=== PATIENT | male | born 1945 | race Asian ===

== ENCOUNTER 2018-08-12 10:10 | Inpatient (IN) | payer SELFPAY ==
[~2018-08-12] VITALS: Ht 160 cm; Wt 66.2 kg
[2018-08-12] VITALS (23 sets, daily range): BP systolic 32–127; BP diastolic 22–66
--- NOTE | 2018-08-12 08:25 | NUR ---
BLOOD SUGAR 48, WILL FOLLOW THE PROTOCOL
--- NOTE | 2018-08-12 10:10 | NUR ---
PATIENT BIBA TO BED 4 AT THIS TIME.
--- NOTE | 2018-08-12 10:22 | NUR ---
DR. FOREMAN AT BEDSIDE EVALUATING PATIENT.
--- NOTE | 2018-08-12 10:29 | NUR ---
PATIENT MOVED TO BED 10 AT THIS TIME.
[2018-08-12] MEDS ORDERED: DEXTROSE 50% 50 ML SYR IVP ONE ×5 (10:40→15:45)
--- NOTE | 2018-08-12 10:41 | NUR ---
lab at bedside
--- NOTE | 2018-08-12 10:55 | NUR ---
72 male biba from home c/o sob, generalized weakness. family states it worsened this am. pt on a non-rebreather 15 l. 02 at 100%. PT NON RESPONSIVE, SEVERE WEAKNESS. pmh- neck cancer
[2018-08-12 10:57] LABS: HEMATOCRIT 32.5 % (36-52); HEMOGLOBIN 9.6 g/dL (12.0-18.0); MEAN CORPUSCULAR HEMOGLOBIN 18 pg (27-31); MEAN CORPUSCULAR HGB CONC 30 g/dL (33-37); MEAN CORPUSCULAR VOLUME 60.6 fL (80-94); PLATELET COUNT (AUTO) 202 K/uL (140-450); RED BLOOD CELL COUNT(AUTO) 5.36 MIL/uL (4.20-6.10); RED CELL DISTRIBUTION WIDTH 23.2 % (11.6-13.7)
[2018-08-12 11:14] LABS: PROTHROMBIN TIME 13.2 secs (10.8-13.4)
--- NOTE | 2018-08-12 11:15 | NUR ---
ABG DONE; HYPOVOLEMIC STATUS PUNCTURE ATTEMPT X 4
[2018-08-12 11:23] LABS: ALBUMIN 1.5 g/dL (3.4-5.0); ANION GAP 13.3 (8-16); ASPARTATE AMINOTRANSFERASE 280 U/L (15-37); CARBON DIOXIDE 29.7 mmol/L (21-32); CHLORIDE 107 mmol/L (98-107); CREATININE 2.8 mg/dL (0.7-1.3); LIPASE 206 U/L (73-393); MAGNESIUM 2.4 mg/dL (1.8-2.4); PHOSPHORUS 8.1 mg/dL (2.5-4.9); SODIUM SERUM 144 mmol/L (136-145); TOTAL BILIRUBIN 0.5 mg/dL (0.0-1.0)
--- NOTE | 2018-08-12 11:23 | NUR ---
REVIEWED ABG SAMPLE REPORT WITH DR. EDWAR NAILS/ NO NEW ORDERS
[2018-08-12 11:28] LABS: GLUCOSE 25 mg/dL (74-106); UREA NITROGEN, BLOOD 109 mg/dL (7-18)
[2018-08-12 11:33] LABS: LYMPHOCYTES % (MANUAL) 11 % (20-46); MONOCYTES % (MANUAL) 4 % (5-12)
[2018-08-12] MEDS ORDERED: INSULIN REGULAR, HUMAN 100 UNIT/ML VIAL IVP ONE (11:45)
[2018-08-12] MEDS ORDERED: CALCIUM GLUCONATE 10% 1000 MG/10 ML VIAL IVP ONE (11:45)
[2018-08-12] MEDS ORDERED: PATIROMER CALCIUM SORBITEX 8.4 GM PKT PO ONE ×2 (11:45→17:35)
--- NOTE | 2018-08-12 11:46 | NUR ---
PT GOING TO CT AT THIS TIME
[2018-08-12 12:27] LABS: APPEARANCE,URINE HAZY (CLEAR); BILIRUBIN,URINE 1+ (NEGATIVE); BLOOD, URINE NEGATIVE (NEGATIVE); COLOR,URINE YELLOW (YELLOW); LEUKOCYTE ESTERASE ,URINE TRACE (NEGATIVE); NITRITE, URINE NEGATIVE (NEGATIVE); UGLUCOSE NEGATIVE (NEGATIVE)
[2018-08-12 12:36] LABS: HYALINE CASTS, URINE 0-2 /LPF (None Seen); RBC,URINE 0 /HPF (0-5); URINE AMORPHOUS URATE 1+ /HPF (None Seen); WBC,URINE 0-5 /HPF (0-5)
--- NOTE | 2018-08-12 13:06 | NUR ---
PT RESTING IN BED, RESIDENT AT BEDSIDE ASSESSING PT. BS 54, ER MD NOTIFIED. VSS.
[2018-08-12] MEDS ORDERED: DEXT 5% / NACL 0.45% 1,000 ML IV SCH (13:37)
[2018-08-12] MEDS ORDERED: LORazepam 2 MG/ML VIAL IM/IVP PRN (13:40)
[2018-08-12] MEDS ORDERED: ONDANSETRON 4 MG/2 ML VIAL IM/IVP PRN (13:40)
[2018-08-12] MEDS ORDERED: DOCUSATE SODIUM 100 MG GELCAP PO PRN (13:40)
[2018-08-12] MEDS ORDERED: MORPHINE SULFATE 2 MG/ML SYR IVP PRN (13:40)
[2018-08-12] MEDS ORDERED: LIDOCAINE/EPI 1% 1:100000 20 ML VIAL INJ ONE (14:29)
[2018-08-12 14:56] LABS: MAGNESIUM 2.5 mg/dL (1.8-2.4); PHOSPHORUS 8.2 mg/dL (2.5-4.9); THYROID STIMULATING HORMONE 6.23 uIU/mL (0.34-3.74)
[2018-08-12] MEDS: DEXTROSE 10% 1,000 ML IV SCH ×2 (15:15→20:32)
[2018-08-12] MEDS ORDERED: ATEN50TA8 PO (15:20)
[2018-08-12] MEDS ORDERED: ALBUTEROL SULFATE/IPRATROPIU 3 ML SOL IH PRN (15:20)
[2018-08-12] MEDS ORDERED: CALCIUM ACETATE 667 MG TAB PO SCH (15:30)
--- NOTE | 2018-08-12 15:30 | NUR ---
PT IS BEING ADMITTED TO ICU 3 VIA GURNEY WITH 2 ER STAFF. WILL ADMIT THE PT.
[2018-08-12] MEDS ORDERED: SODIUM POLYSTYRENE 15 GM/60 ML UDBTL PO ONE (15:40)
[2018-08-12] MEDS: PIPER/TAZO 2.25GM/D5W PREMIX 50 ML IV SCH ×2 (15:40→20:33)
--- NOTE | 2018-08-12 15:40 | NUR ---
Patient noted to have existing wounds upon arrival to ER. Photos taken of wound and placed in chart. Wound covered with dressing. Physician informed.
--- NOTE | 2018-08-12 15:44 | NUR ---
Patient will be admitted to care of [facility]. Admited to ICU 3 VIA CARLINE W/ [facility]. Belongings list completed.
[2018-08-12] MEDS ORDERED: NOREPINEPHRINE 4 MG in DEXTROSE 5% 250 ML IV PRN (16:05)
[2018-08-12 16:26] LABS: ANION GAP 15.3 (8-16); CARBON DIOXIDE 25.5 mmol/L (21-32); CHLORIDE 108 mmol/L (98-107); GLUCOSE 90 mg/dL (74-106); POTASSIUM 5.8 mmol/L (3.5-5.1); SODIUM SERUM 143 mmol/L (136-145)
--- NOTE | 2018-08-12 16:30 | NUR ---
BODY ASSESSMENT DONE AND PICTURES TAKEN FOR WOUNDS. PT A&O X4. RIGHT SIDE LUNG DIMINISHED WITH CRACKLES AND RIGHT LUNG CLEAR. ABDOMINAL BOWEL SOUND ACTIVE. GENERALIZED EDEMA NOTED AND RIGHT UPPER SIDE HAS PITTING EDEMA OF +3 AND FLUID SIPPING OUT OF SKIN FROM BILATERAL UPPER EXTREMITIES. BP AND HR BEING LOW AND DR. LUNDBERG AT BED SIDE AND IS AWARE. CHECK TUBE ON THE RIGHT LATERAL UPPER CHEST WITH 1000ML OUTPUT. LEFT AC 20G PERIPHERAL LINE PATENT AND ASYMPTOMATIC.
[2018-08-12 16:32] LABS: BARBITURATE, URINE NEG. ng/ml (NEG <=200); BENZODIAZEPINE, URINE NEG. ng/mL (NEG <=200); CANNABINOID, URINE NEG. ng/mL (NEG <=50); COCAINE, URINE NEG. ng/mL (NEG <=300); OPIATE, URINE NEG. ng/mL (NEG <=2000); PHENCYCLIDINE SCREEN,URINE NEG. ng/mL (NEG <=25)
[2018-08-12 16:37] LABS: UREA NITROGEN, BLOOD 112 mg/dL (7-18)
--- NOTE | 2018-08-12 16:48 | NUR ---
CENTRAL LINE INSERTION PROCEDURE BEING PERFORMED BY DR. LUNDBERG. CONSENT SIGNED. THE PROCEDURE EXPLAINED BY DR. LUNDBERG AND QUESTIONS ANSWERED. TIME OUT CALLED. DR. LUNDBERG, TABLEAU ANALYST AND RN AT BED SIDE.
[2018-08-12] MEDS: BLOOD GLUCOSE MONITORING 1 DEV DEV FS SCH ×2 (16:57→20:34)
[2018-08-12] MEDS ORDERED: Z-GUARD PASTE TP PRN (17:15)
--- NOTE | 2018-08-12 17:45 | NUR ---
CHEST XRAY IN. DR. LUNDBERG AT BED SIDE.
--- NOTE | 2018-08-12 18:10 | NUR ---
DR. LUNDBERG ORDERED TO ADMINISTER IV BOLUS DUE TO LOW BP.
--- NOTE | 2018-08-12 18:15 | NUR ---
DR. LUNDBERG AT BED SIDE ADJUSTING THE CENTRAL LINE TO LEFT IJ.
--- NOTE | 2018-08-12 18:28 | NUR ---
DR. LUNDBERG ORDERED NOT TO USE THE BROWN PORT FROM THE CENTRAL LINE SINCE IT'S CLOGGED.
--- NOTE | 2018-08-12 19:05 | NUR ---
DR. AUGUSTIN MADE AWARE OF THE IV SITE TO THE LEFT AC IS PULLED OUT BY PT AND THE CENTRAL PLACEMENT IS PENDING. HE IS AWARE OF PT WAS RECEIVING BOLUS IV DUE TO LOW BP AND ONLY RECEIVED ABOUT 600ML. DR. AUGUSTIN IS AWARE OF THE LOW BP AND LOW HR.
--- NOTE | 2018-08-12 19:10 | NUR ---
chest xray at bed side.
--- NOTE | 2018-08-12 19:28 | NUR ---
REPORT GIVEN TO [facility] AT BED SIDE. PT IS AWAKE AND RESPONSIVE. CONTINUES TO HAVE LOW BP AND HR.
--- NOTE | 2018-08-12 19:30 | NUR ---
BED SIDE SHIFT REPORT RECEIVED FROM XAVI PHILLIPS. PT AWAKE AND RESPONSIVE, LETHARGIC BUT ABLE TO FOLLOW COMMANDS, CONFUSED. GCS 14. ANYA AND B/P ON LOW SIDE, RESIDENT DOCTOR IS MADE AWARE. US AT THE BEDSIDE. BREATHING NORMALLY ON NC 4L, CHEST TUBE INTACT AND DRAINING SEROSANGUINEOUS DRAINAGE. ABDOMEN DISTENDED, NON TENDER TO TOUCH. PATE CATHETER INTACT AND NO URINE OUT PUT. MULTIPLE SKIN WOUNDS. WILL CONTINUE TO MONITOR CLOSELY.
--- NOTE | 2018-08-12 20:25 | NUR ---
D50% 1 AMP IVP GIVEN, RESIDENT DOCTOR MADE AWARE.
[2018-08-12] MEDS: DEXTROSE 50% 50 ML SYR IVP PRN (20:30)
--- NOTE | 2018-08-12 20:45 | NUR ---
BLOOD SUGAR 158, IVF CHANGED TO D10 PER RESIDENT DOCTOR'S ORDER.
--- NOTE | 2018-08-12 21:13 | NUR ---
PT COMFORTABLE, CLEANED AND ASLEEP, B/P ON LOW SIDE, WILL START DOPAMINE SOON PER RESIDENT DOCTOR'S ORDER.
[2018-08-12] MEDS: ALBUTEROL SULFATE/IPRATROPIU 3 ML SOL IH SCH (21:18)
[2018-08-12] MEDS ORDERED: SODIUM FERRIC GLUCONATE 125 MG in NACL 0.9% 100 ML IV SCH (21:30)
[2018-08-12] MEDS: DOPamine 400 MG/D5W PREMIX 250 ML IV SCH ×2 (21:37→22:33)
[2018-08-12] MEDS ORDERED: SODIUM FERRIC GLUCONATE 12.5 MG/ML AMP IV ONE (23:02)
[2018-08-13] VITALS (42 sets, daily range): BP systolic 45–138; BP diastolic 20–75
[2018-08-13] MEDS ORDERED: Z-GUARD PASTE TP SCH (01:00)
[2018-08-13] MEDS: PIPER/TAZO 2.25GM/D5W PREMIX 50 ML IV SCH (03:43)
[2018-08-13 05:30] LABS: MAGNESIUM 2.4 mg/dL (1.8-2.4); PHOSPHORUS 7.8 mg/dL (2.5-4.9)
[2018-08-13 05:34] LABS: CHOL/HDL RATIO 1.4 (1-4.5)
[2018-08-13 06:14] LABS: BASOPHILS % (AUTO) 0.2 % (0.0-2.0); EOSINOPHILS % (AUTO) 0.2 % (0.0-4.0); HEMOGLOBIN 9.9 g/dL (12.0-18.0); LYMPHOCYTES # (AUTO) 0.4 K/uL (2.0-11.5); LYMPHOCYTES % (AUTO) 6.2 % (20.5-51.1); MEAN CORPUSCULAR HEMOGLOBIN 18 pg (27-31); MEAN CORPUSCULAR HGB CONC 29 g/dL (33-37); MEAN CORPUSCULAR VOLUME 62.3 fL (80-94); MONOCYTES # (AUTO) 0.2 K/uL (0.8-1.0); MONOCYTES % (AUTO) 3.6 % (1.7-9.3); NEUTROPHILS # (AUTO) 5.1 K/uL (1.8-7.7); NEUTROPHILS % (AUTO) 89.8 % (42.2-75.2); PLATELET COUNT (AUTO) 207 K/uL (140-450); RED BLOOD CELL COUNT(AUTO) 5.47 MIL/uL (4.20-6.10); RED CELL DISTRIBUTION WIDTH 23.7 % (11.6-13.7); WHITE BLOOD COUNT (AUTO) 5.7 K/uL (4.8-10.8)
[2018-08-13] MEDS ORDERED: ACETAMINOPHEN 650 MG SUPP RC PRN (07:00)
[2018-08-13] MEDS ORDERED: LORazepam 2 MG/ML VIAL IVP PRN (07:00)
--- NOTE | 2018-08-13 07:20 | NUR ---
BEDSIDE REPORT GIVEN TO ANA HURLEY.
--- NOTE | 2018-08-13 07:21 | NUR ---
OBTAINED REPORT FROM BABY NURSE NURSE AT BEDSIDE, PT IS AAOX3, ABLE TO FOLLOW COMMANDS AND MAKE NEEDS KNOWN, DENIES PAIN, VSS, NO S/S OF DISTRESS, CLEAR LUNG SOUND TO LEFT SIDE, DIMINISHED LUNG SOUNDS TO RIGHT SIDE, CHEST TUBE IN PLACE TO RIGHT CHEST, ON O2 AT 2L VIA NC, O2 AT 96%, DENIES CHEST PAIN, GENERALIZED PITTING EDEMA TO ALL EXTREMITIES NOTED, SOFT ABDOMEN WITH HYPOACTIVE BOWEL SOUNDS, PATE CATHETER IN PLACE WITH SEDIMENT YELLOW URINE VIA GRAVITY, SKIN IS COOL TO TOUCH, NON-INTACT, MULTIPLE PRESSURE ULCERS (SEE WOUND ASSESSMENT), CENTRAL LINE TO LIJ, TLC, PATENT, RUNNING DOPAMINE DRIP AT 10 MG/HR, AND D10 AT 60ML/HR. HOB ELEVATED TO 30 DEGREES, SAFETY MEASURE CHECKED, POSITION CHANGED FOR COMFORT, CALL LIGHT WITHIN REACH, WILL CONTINUE TO MONITOR.
--- NOTE | 2018-08-13 07:30 | NUR ---
ACCU CHECK WITH 42 MG/DL NOTED, D50 GIVEN ORDERED, WILL CONTINUE TO MONITOR.
[2018-08-13] MEDS: ALBUTEROL SULFATE/IPRATROPIU 3 ML SOL IH SCH (07:33)
[2018-08-13] MEDS: BLOOD GLUCOSE MONITORING 1 DEV DEV FS SCH (07:45)
[2018-08-13] MEDS: DEXTROSE 50% 50 ML SYR IVP PRN (07:46)
[2018-08-13] MEDS: MORPHINE SULFATE 50 MG in NACL 0.9% 45 ML IV PRN ×2 (08:22→11:45)
--- NOTE | 2018-08-13 08:22 | NUR ---
MORPHINE DRIP STARTED FOR COMFORT CARE, EXPLAINED MEDICATION INDICATION AND SIDE EFFECTS TO PT, PT VERBALIZED UNDERSTANDING.
--- NOTE | 2018-08-13 08:38 | NUR ---
ALL MEDICATION STOPPED ORDERED PER DR. SARKAR, ONLY KEEP MORPHINE DRIP FOR COMFORT CARE.
--- NOTE | 2018-08-13 08:40 | NUR ---
PT'S FRIENDS CAME IN TO SEE PT AT BEDSIDE, DR. SARKAR AND DR. LARA AT BEDSIDE EXPLAINED PT'S CONDITION AND PT'S DECISION.
--- NOTE | 2018-08-13 08:41 | NUR ---
PATIENT HAS BEEN SCREENED AND CATEGORIZED HIGH NUTRITION RISK. PATIENT WILL BE SEEN WITHIN 1-2 DAYS OF ADMISSION. 08/13/18-08/14/[address]
[2018-08-13] MEDS ORDERED: FUROSEMIDE 20 MG/2 ML VIAL IVP SCH (09:00)
[2018-08-13 09:03] LABS: ANION GAP 15.3 (8-16); CARBON DIOXIDE 26.3 mmol/L (21-32); CHLORIDE 104 mmol/L (98-107); CREATININE 2.9 mg/dL (0.7-1.3); POTASSIUM 5.6 mmol/L (3.5-5.1); SODIUM SERUM 140 mmol/L (136-145)
[2018-08-13 09:06] LABS: GLUCOSE 47 mg/dL (74-106); UREA NITROGEN, BLOOD 114 mg/dL (7-18)
--- NOTE | 2018-08-13 09:45 | NUR ---
DR. CORBIN CAME IN TO SEE PT AT BEDSIDE, UPDATED PT'S CONDITION, WILL FOLLOW UP WITH NEW ORDERS.
--- NOTE | 2018-08-13 10:00 | NUR ---
PT C/O PAIN AT PATE CATHETER AREA, REQUESTED TO REMOVE THE TUBE, DR. CORBIN MADE AWARE, OK TO D/C PATE CATHETER FOR COMFORT. Addendum: 08/13/18 at 1003 by John Scott RN PATE CATHETER REMOVED ORDERED.
--- NOTE | 2018-08-13 10:40 | NUR ---
SPOKE TO , WOUND CONSULT CANCELLED. PT IS IN COMFORT CARE.
--- NOTE | 2018-08-13 12:00 | NUR ---
PT IS ASLEEP IN BED, NO S/S OF DISTRESS, POSITION CHANGED FOR OFF LOAD PRESSURE.
[2018-08-13 12:14] LABS: HEPATITIS A ANTIBODY IGM Negative (Negative); HEPATITIS B CORE AB TOTAL Negative (Negative); HEPATITIS B SURFACE ANTIBODY Non Reactive (.); HEPATITIS B SURFACE ANTIGEN Negative (Negative)
--- NOTE | 2018-08-13 13:45 | NUR ---
TRANSFERRED PT TO ROOM 126B, REPORT GIVEN TO GENNA RN AT BEDSIDE FOR CONTINUE OF CARE. BP 58/35, TEMP 96.2F, HR 56, RR 5, O2 SAT 93%. ALL BELONGINGS GOES WITH PT, NO INCIDENT OCCUR, PT'S FRIENDS INFORMED OF TRANSFER.
--- NOTE | 2018-08-13 13:50 | NUR ---
RECEIVED REPORT FROM KNOT CUTTER ANA. PT ON MORPHINE DRIP 14 MG/HR. NO S/S DISTRESS. NOT RESPONSIVE TO VOICE OR TOUCH. CHEST TUBE IN PLACE, PATENT AND DRAINING. PT POSITIONED FOR COMFORT. ALL SAFETY PRECAUTIONS IN PLACE, WILL CONTINUE TO MONITOR. Addendum: 08/13/18 at 1422 by Ibis Espinoza Meng, RN RT IJ CENTRAL LINE. PRESSURE ULCER RT SHOULDER, BILATERAL BUTTOCKS, MID BACK, DRESSINGS C/D/I.
--- NOTE | 2018-08-13 13:58 | NUR ---
CALLED [employer] TO BRING CHEST TUBE CLAMPS.
--- NOTE | 2018-08-13 14:04 | NUR ---
[facility] NO LONGER NEEDED, PLEASE CONTACT RD IF THERE ARE ANY CHANGES IN STATUS.
--- NOTE | 2018-08-13 14:24 | NUR ---
BP 47/22, SPO2 100% ON 2L NC, HR 74, RR 5. NO S/S DISTRESS.
--- NOTE | 2018-08-13 14:53 | NUR ---
INCREASED MORPHINE DRIP TO 16 MG/HR PER DR. HANEY ORDERS FOR PT SEEN IN AGONAL BREATHING. RR 5 BREATHS PER MIN. Addendum: 08/13/18 at 1455 by Ibis Espinoza Meng, RN VERIFIED BY APOLONIA ALEXIS AT BEDSIDE.
--- NOTE | 2018-08-13 14:57 | NUR ---
NOTIFIED PHARMACY THAT MORPHINE DRIP WAS INCREASED BY 2 MG/HR. PHARMACY TO MAKE NEW BAG OF MORPHINE.
[2018-08-13] MEDS ORDERED: MORPHINE SULFATE 100 MG in NACL 0.9% 90 ML IV PRN (15:00)
[2018-08-13] MEDS ORDERED: NACL 0.9% IV PRN (15:30)
[2018-08-13] MEDS ORDERED: MORPHINE SULFATE IV PRN (15:30)
--- NOTE | 2018-08-13 15:30 | NUR ---
NOTIFIED DR. HANEY THAT PATIENT FOUND ASYSTOLIC ON TELE, NO NO HEARTBEAT AUSCULTATED, NO RESPIRATIONS SEEN.
--- NOTE | 2018-08-13 15:41 | NUR ---
NOTIFIED MAURA LEOS THAT PATIENT HAS BEEN PRONOUNCED . PER [facility]UR[facility] LEOS, NO AUTOPSY NEEDED.
--- NOTE | 2018-08-13 16:10 | NUR ---
CALLED [employer]. PER [employer] [facility], [facility] IS ELIGIBLE FOR ORGAN DONATION. REFERRAL #[id number].
--- NOTE | 2018-08-13 16:16 | NUR ---
CALLED [employer] INSTALL[employer]S OFFICE TO REPORT . THEY WILL HAVE DEPUTY RETURN CALL.
--- NOTE | 2018-08-13 17:26 | NUR ---
CALLED MAURA LEOS [phone] TO INQUIRE ABOUT MORTUARY. DERIC'S SISTER PICKED UP THE PHONE. STATES [facility] LEFT FOR THE HOSPITAL 5 MINUTES AGO.
--- NOTE | 2018-08-13 17:31 | NUR ---
CALLED [facility] AND ANSWERED ALL F/U QUESTIONS. PER [facility], THEY WILL CALL EVERY 1 HOUR OR SO TO FOLLOW UP.
--- NOTE | 2018-08-13 17:33 | NUR ---
MAURA LEOS STATES SHE DOES NOT WANT ORGAN DONATION.
--- NOTE | 2018-08-13 17:38 | NUR ---
CALLED [employer] TO REPORT THAT [facility]ILY [facility] DOES NOT WANT ORGAN DONATION. [employer] HAS DISCHARGED CASE.
--- NOTE | 2018-08-13 17:40 | NUR ---
CALLED [employer]IC[employer] ANALYST'S OFFICE. THEY STATE THEY WILL CALL ME BACK LATER.
--- NOTE | 2018-08-13 18:45 | NUR ---
H MALI (APPLICATION ARCHITECT) STATES THIS IS NOT APPLICATION ARCHITECT'S CASE. RELEASE #[id number]
== END 2018-08-13 15:28 | disposition expired | DRG 871 ==
LOC: MED 10:10 → MIC 13:06 → MMU 08-13 12:35 → MIC 08-13 13:02 → MMU 08-13 13:45
PROVIDERS: ADMIT General Practice; ATTEND General Practice
PROC: 0W9930Z Drainage of Right Pleural Cavity with Drainage Device, Percutaneous Approach (ICD-10-PCS; principal; 2018-08-12)
PROC: 02HV33Z Insertion of Infusion Device into Superior Vena Cava, Percutaneous Approach (ICD-10-PCS; 2018-08-12)
PROC: B548ZZA Ultrasonography of Superior Vena Cava, Guidance (ICD-10-PCS; 2018-08-12)
DX: A41.9 Sepsis, unspecified organism (principal); J18.9 Pneumonia, unspecified organism; N17.0 Acute kidney failure with tubular necrosis; E43 Unspecified severe protein-calorie malnutrition; I50.43 Acute on chronic combined systolic (congestive) and diastolic (congestive) heart failure; J96.21 Acute and chronic respiratory failure with hypoxia; N18.6 End stage renal disease; C34.90 Malignant neoplasm of unspecified part of unspecified bronchus or lung; G93.40 Encephalopathy, unspecified; I13.2 Hypertensive heart and chronic kidney disease with heart failure and with stage 5 chronic kidney disease, or end stage renal disease; N39.0 Urinary tract infection, site not specified; J94.8 Other specified pleural conditions; E03.9 Hypothyroidism, unspecified; E83.39 Other disorders of phosphorus metabolism; E83.41 Hypermagnesemia; E86.0 Dehydration; E16.2 Hypoglycemia, unspecified; D64.9 Anemia, unspecified; D50.9 Iron deficiency anemia, unspecified; E83.51 Hypocalcemia; I46.9 Cardiac arrest, cause unspecified; E87.8 Other disorders of electrolyte and fluid balance, not elsewhere classified; E87.5 Hyperkalemia; J45.909 Unspecified asthma, uncomplicated; K70.31 Alcoholic cirrhosis of liver with ascites; R13.10 Dysphagia, unspecified; Z87.891 Personal history of nicotine dependence; Z68.25 Body mass index [BMI] 25.0-25.9, adult
CPT/HCPCS: 32554; 36415; 36600; 71045; 71250; 76604; 76700; 80048; 80053; 80305; 81001; 82150; 82607; 82728; 82746; 82803; 82948; 83036; 83540; 83605; 83690; 83735; 83880; 84100; 84443; 84484; 85025; 85045; 85610; 86704; 86706; 86708; 86709; 86803; 87040; 87081; 87086; 87340; 93005; 94640; 96374; 96375; 96376; 99291; 99292; G0482; J0610; J1265; J1642; J1815; J1940; J2001; J2270; J2543; J2916; J3490; J7030; J7042; J7060; J7620; Q0092